=== PATIENT | female | born 1945 | race Caucasian/White ===

== ENCOUNTER 2017-02-28 07:37 | Day surgery (SDC) | payer MEDICARE ==
[2017-02-28 10:47] VITALS: BP 147/79
== END 2017-02-28 10:40 | disposition home or self-care (01) ==
LOC: SDC 07:37
PROVIDERS: Ophthalmology
PROC: 08RJ3JZ Replacement of Right Lens with Synthetic Substitute, Percutaneous Approach (ICD-10-PCS; principal; 2017-02-28 08:30)
DX: H26.9 Unspecified cataract (principal); H54.61 Unqualified visual loss, right eye, normal vision left eye; E11.9 Type 2 diabetes mellitus without complications
CPT/HCPCS: V2632